=== PATIENT | male | born 1960 | race Caucasian/White ===

== ENCOUNTER 2019-09-22 10:19 | Emergency (ER) | payer BC, OTHER ==
--- NOTE | 2019-09-22 10:53 | ED ---
Back Pain - HPI Summary HPI Summary: Patient is a 59 y/o M presenting to [facility] with complaints of lower back pain and elevated HR. He states that he was walking up a hill to [place] when he had sudden onset of severe lower back pain. He characterizes the pain as "shocking" . Pain is across his lower back and does not radiate elsewhere. Patient notes that the pain has lessened in severity but some discomfort is still present. He denies pain with palpation but notes that deep breaths and twisting movements aggravate his pain. He also notes that he experienced a heart-racing sensation with the pain, stating that his HR was measured to be in the 150s for 1-2 minutes. Patient is very physically active (running, cycling, skiing) and has HR in 40s while lying in stretcher. Patient states that he has had episodes of back pain previously but notes that they were not as sudden or severe and that he did not experience an elevated HR with his pain. He denies CP and numbness/ weakness in his legs. PMHx is denied. Home medications and allergies are reviewed. Home Medications Medication Instructions Recorded Confirmed Type Pantoprazole TAB * [Protonix TAB 40 mg PO DAILY 04/27/16 04/27/16 History (NF)] Levothyroxine TAB* [Synthroid TAB*] 25 mcg PO DAILY 09/22/19 09/22/19 History - History of Current Complaint Chief Complaint: EDBackInjuryPain Stated Complaint: CHEST PAIN PER PT Time Seen by Provider: 09/22/19 10:29 Hx Obtained From: Patient Onset/Duration: Sudden Onset, Still Present Onset/Duration: Still Present Timing: Constant Back Pain Location: Is Discrete @ - lower back Severity Initially: Severe Severity Currently: Mild Pain Intensity: 3 Pain Scale Used: 0-10 Numeric Aggravating Symptom(s): Other - twisting, deep breaths Associated Signs And Symptoms: Positive: Other - negative - CP; positive - elevated HR. Negative: Weakness, Numbness - Allergies/Home Medications Allergies/Adverse Reactions: Allergies Allergy/AdvReac Type Severity Reaction Status Date / Time No Known Allergies Allergy Verified 09/22/19 10:22 Home Medications: Home Medications Pantoprazole TAB * [Protonix TAB (NF)] 20 mg PO DAILY 04/27/16 [History Confirmed 09/22/19] Levothyroxine TAB* [Synthroid TAB*] 25 mcg PO DAILY 09/22/19 [History Confirmed 09/22/19] PMH/Surg Hx/FS Hx/Imm Hx Endocrine/Hematology History: Denies: Hx Diabetes Cardiovascular History: Denies: Hx Hypertension GI History: Reports: Hx Gastroesophageal Reflux Disease - OK WITH DAILY MED Musculoskeletal History: Denies: Hx Rheumatoid Arthritis, Hx Osteoporosis Sensory History: Reports: Hx Contacts or Glasses - GLASSES Denies: Hx Hearing Aid Opthamlomology History: Reports: Hx Contacts or Glasses - GLASSES - Surgical History Surgery Procedure, Year, and Place: 1995 RT TESTICE RESECTION [facility] [place]. 1996 [facility] [place]. 2011 [facility] Hx Anesthesia Reactions: Yes - N/V WITH [facility] Infectious Disease History: No Infectious Disease History: Denies: Traveled Outside the [place] in Last 30 Days - Family History Known Family History: Negative: Diabetes - Social History Alcohol Use: None Substance Use Type: Reports: None Smoking Status (MU): Never Smoked Tobacco Review of Systems Positive: Other - elevated HR . Negative: Chest Pain Positive: Other - lower back pain Negative: Weakness, Numbness All Other Systems Reviewed And Are Negative: Yes Physical Exam - Summary Physical Exam Summary: Constitutional: Well-developed, Well-nourished, Alert. (-) Distressed Skin: Warm, Dry HENT: Normocephalic; Atraumatic Eyes: Conjunctiva normal Neck: Musculoskeletal ROM normal neck. (-) JVD, (-) Stridor, (-) Nuchal rigidity Cardio: Rhythm regular, rate normal, Heart sounds normal; Intact distal pulses; Radial pulses are 2+ and symmetric. (-) Murmur Pulmonary/Chest wall: Effort normal. (-) Respiratory distress, (-) Wheezes, (-) Rales Abd: Soft, (-) tenderness, (-) Distension, (-) Guarding, (-) Rebound Musculoskeletal: (-) Edema; DP pulses are 2+ Lymph: (-) Cervical adenopathy Neuro: Alert, Oriented x3 Psych: Mood and affect Normal Triage Information Reviewed: Yes Vital Signs On Initial Exam: Initial Vitals Temp Pulse Resp BP Pulse Ox 97.7 F 56 15 149/82 98 09/22/19 10:19 09/22/19 10:19 09/22/19 10:19 09/22/19 10:19 09/22/19 10:19 Vital Signs Reviewed: Yes Procedures - Sedation Patient Received Moderate/Deep Sedation with Procedure: No Diagnostics - Vital Signs Vital Signs Temp Pulse Resp BP Pulse Ox 09/22/19 10:38 54 15 136/79 99 09/22/19 10:19 97.7 F 56 15 149/82 98 - Laboratory Result Diagrams: 09/22/19 10:59 09/22/19 10:59 Lab Statement: Any lab studies that have been ordered have been reviewed, and results considered in the medical decision making process. - CT CTA CHEST/ABDOMEN/PELVIS CT Interpretation Completed By: Radiologist Summary of CT Findings: IMPRESSION: No evidence of aneurysmal dilatation or aortic dissection. No obvious filling. defects are noted in the pulmonary artery. Scarring in the right middle lobe is noted. THIS REPORT WAS REVIEWED BY ED PHYSICIAN. - EKG 1123 Cardiac Rate: Bradycardia - rate of 46 BPM EKG Rhythm: Sinus Bradycardia Summary of EKG Findings: EKG showed sinus bradycardia with rate of 46 BPM, RBBB , T-wave inversion in leads II, III, and aVF. ED physician has reviewed and interpreted this EKG. Re-Evaluation - Re-Evaluation First Eval Re-Evaluation Time: 12:40 Change: Improved - d/w patient neg CT findings. Pain free at this time Back Pain Course/Dx - Course Course Of Treatment: 59 y/o male w hx ?AAA in past p/w lower back pain. - PE well appearing, HR bradycardic. - no palpable abdominal mass, patient is denying chest pain. Given episode of back pain without tenderness on exam and history of a possible aortic aneurysm, we'll check a CTA to assess for aortic pathology. Also consider MSK cause of pain. - CTA negative for acute pathology , discharged home. - Diagnoses Provider Diagnoses: Lower back pain Discharge ED - Sign-Out/Discharge Documenting (check all that apply): Patient Departure - discharge - Discharge Plan Condition: Stable Disposition: HOME Patient Education Materials: Back Pain (ED) Forms: *Work Release Referrals: Kraig Fam MD [Primary Care Provider] - Additional Instructions: You were seen in the emergency department for pain. Your CT scan did not show any abnormalities. Please follow up with your primary care doctor in next 2-3 days and return to emergency department for worsening , chest pain, or concerning symptoms. It was a pleasure taking care of you today. - Billing Disposition and Condition Condition: STABLE Disposition: Home - Attestation Statements Document Initiated by Sudhiribjoanne: Yes Documenting Scribe: VIRGINIA COUGHLIN Provider For Whom Dipesh is Documenting (Include Credential): NAE MCPHERSON MD Scribe Attestation: I, VIRGINIA COUGHLIN, scribed for NAE MCPHERSON MD on 09/25/19 at 0704. Scribe Documentation Reviewed: Yes Provider Attestation: The documentation as recorded by the VIRGINIA vega accurately reflects the service I personally performed and the decisions made by me, NAE MCPHERSON MD Status of Scribe Document: Viewed
[2019-09-22 11:07] LABS: Hematocrit 42 % (42-52); Hemoglobin 14.3 g/dL (14.0-18.0); Mean Corpuscular HGB Conc 34 g/dL (31-36); Mean Corpuscular Hemoglobin 30 pg (27-31); Mean Corpuscular Volume 88 fL (80-94); Mean Platelet Volume 7.7 fL (7.4-10.4); Platelet Count 223 10^3/uL (150-450); Red Blood Count 4.73 10^6 /uL (4.18-5.48); Red Cell Distribution Width 14 % (10-15); White Blood Count 3.6 10^3/uL (3.5-10.8)
[2019-09-22 11:23] LABS: Albumin 4.2 g/dL (3.2-5.2); Albumin/Globulin Ratio 1.9 (1-3); BUN/Creatinine Ratio 16.9 (8-20); Calcium 8.9 mg/dL (8.6-10.3); EGFR African American 106.6 (>60); EGFR Non-African American 88.1 (>60); Globulin 2.2 g/dL (2-4); Potassium 4.4 mmol/L (3.5-5.0); Total Bilirubin 1.4 mg/dL (0.2-1.0); Total Protein 6.4 g/dL (6.4-8.9)
[2019-09-22] MEDS ORDERED: Iohexol 350* (CONTRAST) 500 ML MDV IV ONE (11:45)
[2019-09-22 13:03] VITALS: BP 118/69
== END 2019-09-22 13:06 | disposition home or self-care (01) ==
LOC: ED 10:19
DX: M54.5 Low back pain (principal); E03.9 Hypothyroidism, unspecified; K21.9 Gastro-esophageal reflux disease without esophagitis; Z90.49 Acquired absence of other specified parts of digestive tract; Z79.890 Hormone replacement therapy; Z79.899 Other long term (current) drug therapy
CPT/HCPCS: 36415; 71275; 74174; 80053; 85027; 93005; 99282; Q9967